=== PATIENT | female | born 1975 | race Two or more races ===

== ENCOUNTER 2023-10-23 11:34 | Emergency (ER) | payer OTHER ==
[~2023-10-23] VITALS: Ht 167.6 cm; Wt 61.2 kg
[2023-10-23] MEDS ORDERED: IMITREX100 MG PO (20:52)
== END 2023-10-23 21:30 | disposition home or self-care (01) ==
LOC: ER 11:35
DX: R51.9 Headache, unspecified (principal); H11.30 Conjunctival hemorrhage, unspecified eye